=== PATIENT | female | born 1975 | race Caucasian/White ===

== ENCOUNTER 2023-03-07 15:59 | Emergency (ER) | payer OTHER ==
[~2023-03-07] VITALS: Ht 157 cm; Wt 112.3 kg
[2023-03-07 16:19] LABS: BASOPHILS # (AUTO) 0.1 10^3/uL (0.0-0.1); BASOPHILS % (AUTO) 0 % (0-10); EOSINOPHILS # (AUTO) 0.2 10^3/uL (0.0-0.3); EOSINOPHILS % (AUTO) 2 % (0-10); HEMATOCRIT 45 % (35-52); LYMPHOCYTES # (AUTO) 2.3 10^3/uL (1.0-4.0); LYMPHOCYTES % (AUTO) 20 % (12-44); MEAN CORPUSCULAR HEMOGLOBIN 29 pg (25-34); MEAN CORPUSCULAR HGB CONC 34 g/dL (32-36); MEAN CORPUSCULAR VOLUME 85 fL (80-99); MONOCYTES # (AUTO) 0.8 10^3/uL (0.0-1.0); MONOCYTES % (AUTO) 7 % (0-12); NEUTROPHILS # (AUTO) 7.8 10^3/uL (1.8-7.8); NEUTROPHILS % (AUTO) 70 % (42-75); PLATELET COUNT 268 10^3/uL (130-400); WHITE BLOOD COUNT 11.2 10^3/uL (4.3-11.0)
--- NOTE | 2023-03-07 16:23 | ED General ---
General Chief Complaint: Cardiac/General Problems Stated Complaint: ELEV BP Source of Information: Patient Exam Limitations: No Limitations History of Present Illness Date Seen by Provider: Mar 07, 2023 Time Seen by Provider: 16:17 Initial Comments This is a 47-year-old female with no current medical history and does not see a primary care physician. Patient reports that she had elevated blood pressure today that was checked at work and was 200s systolic. She checked it because she has been having a couple of nosebleeds this week and not feeling well. Denies chest pain or shortness of breath. No medications taken prior to arrival. Allergies and Home Medications Allergies Coded Allergies: No Known Drug Allergies (Unverified , 03/07/23) Patient Home Medication List Home Medication List Reviewed: Yes Review of Systems Review of Systems Constitutional: see HPI (All other systems negative except as documented in HPI.) Physical Exam Vital Signs Capillary Refill : Height, Weight, BMI Height: '" Weight: lbs. oz. kg; BMI Method: General Appearance: No Apparent Distress, WD/WN Eyes: Bilateral Eye Normal Inspection, Bilateral Eye PERRL, Bilateral Eye EOMI HEENT: PERRL/EOMI, TMs Normal, Normal ENT Inspection, Pharynx Normal Neck: Full Range of Motion, Normal Inspection, Non Tender, Supple, Carotid Bruit Respiratory: Chest Non Tender, Lungs Clear, Normal Breath Sounds, No Accessory Muscle Use, No Respiratory Distress Cardiovascular: Regular Rate, Rhythm, No Edema, No Gallop, No JVD, No Murmur, Normal Peripheral Pulses Gastrointestinal: Normal Bowel Sounds, No Organomegaly, No Pulsatile Mass, Non Tender, Soft Back: Normal Inspection, No CVA Tenderness, No Vertebral Tenderness Extremity: Normal Capillary Refill, Normal Inspection, Normal Range of Motion, Non Tender, No Calf Tenderness, No Pedal Edema Neurologic/Psychiatric: Alert, Oriented x3, No Motor/Sensory Deficits, Normal Mood/Affect Skin: Normal Color, Warm/Dry Lymphatic: No Adenopathy Progress/Results/Core Measures Suspected Sepsis SIRS Temperature: Pulse: Respiratory Rate: Blood Pressure / Mean: Results/Orders My Orders Orders - ARTEMIO BARDALES DO Cbc And Automated Diff (03/07/23 16:15) Basic Metabolic Panel (03/07/23 16:15) Lisinopril Tablet (Lisinopril Tablet) (03/07/23 16:30) Vital Signs/I&O Capillary Refill : Progress Note : Time: 16:18 Progress Note Patient seen for elevated blood pressure. Pressure is currently 200s systolic. We will check basic labs and the patient will be given 10 mg of lisinopril. She is instructed to establish care with a primary care physician and follow-up in 1 to 2 weeks for reevaluation. She is also instructed to keep a log of her blood pressure once a day. Departure Impression Primary Impression: Hypertension Disposition: HOME, SELF-CARE Condition: Stable Departure-Patient Inst. Referrals: NO,LOCAL PHYSICIAN (PCP) [place] [facility] [place] Instructions: High Blood Pressure (DC) Add. Discharge Instructions: Please check your blood pressure once daily and keep a log for your primary care physician. All discharge instructions reviewed with patient and/or family. Voiced understanding. Scripts Lisinopril (Lisinopril) 10 Mg Tablet 10 MG PO DAILY for 14 Days, #14 TAB Prov: ARTEMIO BARDALES DO 03/07/23 ARTEMIO BARDALES DO Mar 07, 2023 16:23
[2023-03-07] MEDS ORDERED: LISI10TA25 PO (16:25)
[2023-03-07 16:29] LABS: POTASSIUM 4.1 MMOL/L (3.6-5.0)
[2023-03-07 16:30] LABS: CALCIUM 9.2 MG/DL (8.5-10.1)
[2023-03-07 16:34] LABS: CREATININE SERUM 0.99 MG/DL (0.60-1.30)
[2023-03-07 16:42] VITALS: BP 161/111
== END 2023-03-07 16:43 | disposition home or self-care (01) ==
LOC: ER FS 16:01
DX: I10 Essential (primary) hypertension (principal)
CPT/HCPCS: 36415; 80048; 85025; 99283